=== PATIENT | female | born 1990 | race Caucasian/White ===

== ENCOUNTER 2018-11-01 20:08 | Inpatient (IN) | payer OTHER ==
[~2018-11-01] VITALS: Ht 167.6 cm; Wt 73.6 kg
[2018-11-03 07:30] VITALS: BP 112/73
== END 2018-11-03 14:35 | disposition home or self-care (01) | DRG 807 ==
LOC: LDOP 20:08 → LDIP 20:17 → 2NW 23:33
PROVIDERS: ADMIT Obstetrics & Gynecology; ATTEND Obstetrics & Gynecology
PROC: 10E0XZZ Delivery of Products of Conception, External Approach (ICD-10-PCS; principal; 2018-11-01)
DX: O69.81X0 Labor and delivery complicated by cord around neck, without compression, not applicable or unspecified (principal); Z37.0 Single live birth; Z3A.40 40 weeks gestation of pregnancy
CPT/HCPCS: 36415; 85025; 86850; 86900; G0378; J3010; J2590; J7120